=== PATIENT | male | born 1980 | race Caucasian/White ===

== ENCOUNTER 2019-06-15 18:20 | Emergency (ER) | payer MEDICAID, SELFPAY ==
[2019-06-15 19:00] VITALS: BP 102/68; PULSE 101; RESP 18; TEMP 37.1; O2SAT 98
--- NOTE | 2019-06-15 19:29 | ED.GENADULT ---
HPI - General Adult General Chief complaint: Dental/Oral Stated complaint: Possible Infection In mouth Time Seen by Provider: 06/15/19 19:30 Source: patient Mode of arrival: ambulatory Limitations: no limitations History of Present Illness HPI narrative: 38-year-old male patient presents to the [facility] with complaints of left upper dental pain that started yesterday. Patient states is gotten worse today with the pain as well as the swelling to the left cheek. Patient states that currently he does not have a dentist. Patient denies any fevers that he is aware of. Patient states he has been taking Tylenol for his pain. Related Data Home Medications Medication Instructions Recorded Confirmed levothyroxine 06/15/19 prednisone 5 mg PO DAILY 06/15/19 06/15/19 testosterone cypionate mg IM WEEKLY 06/15/19 Allergies Allergy/AdvReac Type Severity Reaction Status Date / Time cefaclor Allergy Unknown HIVES? Unverified 10/06/13 18:10 Review of Systems Review of Systems: Narrative: CONSTITUTIONAL: Denies fever, chills, or sweats. EYES: Denies visual changes, redness, or discharge. ENT: Denies rhinorrhea, congestion, sore throat, or otalgia. Positive left upper dental pain since yesterday CARDIOVASCULAR: Denies chest pain, palpitations, or edema. RESPIRATORY: Denies cough or dyspnea. GASTROINTESTINAL: Denies abdominal pain, nausea, vomiting, or diarrhea. GENITOURINARY: Denies dysuria or hematuria. SKIN: Denies rash or itching. MUSCULOSKELETAL: Denies back pain, joint pain, or myalgia. NEUROLOGIC: Denies headache, numbness, or weakness. PSYCHIATRIC: Denies anxiety or depression. PMFSH Comments At the time of my signature I agree with nursing past medical history, surgical, social, and family history. There is no relevant family history pertinent to the presenting complaint. Exam Narrative: Exam Narrative: GENERAL: Well-appearing, well-nourished, and in no acute distress. HEAD: Normocephalic, atraumatic. EYES: PERRLA and EOMI. ENT: Nares clear, no rhinorrhea or epistaxis. Mucous membranes moist. Patient does have a notable broken tooth to the left upper back molar. There is some surrounding erythema and swelling as well as tenderness on palpation. There is some swelling noted to the left cheek area. Patient tolerating secretions well. Patient able talk clear complete sentences. NECK: Supple. No lymphadenopathy CHEST: Clear to auscultation. No respiratory distress. HEART: Regular rate and rhythm. No murmur heard. Normal peripheral pulses. ABDOMEN: Soft, nontender, nondistended, normal active bowel sounds. EXTREMITIES: Normal range of motion. No edema. SKIN: Warm, dry, no rash. NEURO: No focal deficits. Alert and oriented x3. Course Vital Signs Vital signs: Vital Signs Temperature 37.1 C 06/15/19 19:00 Pulse Rate 101 H 06/15/19 19:00 Respiratory Rate 18 06/15/19 19:00 Blood Pressure 102/68 06/15/19 19:00 Pulse Oximetry 98 06/15/19 19:00 Temperature 37.1 C 06/15/19 19:00 Pulse Rate 101 H 06/15/19 19:00 Respiratory Rate 18 06/15/19 19:00 Blood Pressure 102/68 06/15/19 19:00 Pulse Oximetry 98 06/15/19 19:00 Vital signs reviewed Medical Decision Making Differential Diagnosis Differential Diagnosis: Differential diagnosis: Dental caries, periodontal disease, avulsed tooth, tooth infections, mandibular infection, Som's [place], upper tooth infection, dry socket, gingivitis, acute necrotizing ulcerative gingivitis, sialolithiasis. Notify patient does appear that he is got an infection to a broken tooth to the left upper back side. Discussed with him we will go ahead and discharge him home with antibiotics he can continue taking Tylenol and ibuprofen for the pain. Discussed with him that we will also give him a referral and I would recommend that he start calling around to dentist to get a follow-up appointment because he most likely will need that tooth pulled. Patient verbalized u
== END 2019-06-15 19:40 | disposition home or self-care (01) ==
PROVIDERS: Emergency Provider Nurse Practitioner Family
DX: K02.9 Dental caries, unspecified (principal); K04.7 Periapical abscess without sinus; I10 Essential (primary) hypertension; E03.9 Hypothyroidism, unspecified
CPT/HCPCS: 99203; G0463